=== PATIENT | male | born 1945 | race Caucasian/White ===

== ENCOUNTER 2017-03-29 09:41 | Day surgery (SDC) | payer MEDICARE, BC ==
[2017-03-29] MEDS ORDERED: Sodium Chloride 0.9% 10 ML Syringe FLUSH PRN (09:45)
[2017-03-29] MEDS ORDERED: Lactated Ringers 1,000 ML IV SCH (09:45)
[2017-03-29] MEDS ORDERED: Propofol 200 MG/20 ML SDV ONE ×2 (11:06→11:11)
[2017-03-29] MEDS ORDERED: Midazolam 1 MG/ML 2 ML SDV ONE ×2 (11:06→11:11)
[2017-03-29] MEDS ORDERED: fentaNYL 100 MCG/2 ML SDV ONE ×2 (11:06→11:11)
--- NOTE | 2017-03-29 11:15 | PCM.PN ---
- General Info Date of Service: 03/29/17 - Review of Systems Systems Review Comment:: This 72-year-old male is seen today for colonoscopy. He states his last colon endoscopy was about 10 years ago. He has a history of colon polyps. He is medically stable to proceed today with no significant change in his health status since his last exam. I discussed the proposed colonoscopy with the patient. Risks such as but not limited to bleeding and GI injury or reviewed. He appears to understand and agrees to proceed. - Patient Data Vitals - Most Recent: Last Vital Signs Temp 98.7 F 03/29/17 10:36 Pulse 95 03/29/17 10:36 Resp 18 03/29/17 10:36 BP 137/88 03/29/17 10:36 Pulse Ox 98 03/29/17 10:36 Weight - Most Recent: 88.088 kg Lab Results Last 24 Hours: Laboratory Results - last 24 hr 03/29/17 Range/Units 10:08 POC Glucose 148 H (65-110) mg/dl Med Orders - Current: Current Medications Lactated Ringer's (Ringers, Lactated) 1,000 mls @ 125 mls/hr IV ASDIRECTED LISA Last Admin: 03/29/17 10:29 Dose: 125 mls/hr Sodium Chloride (Saline Flush) 10 ml FLUSH ASDIRECTED PRN PRN Reason: Keep Vein Open Discontinued Medications Fentanyl (Sublimaze) Confirm Administered Dose 100 mcg .ROUTE .STK-MED ONE Stop: 03/29/17 11:07 Midazolam HCl (Versed 1 Mg/Ml) Confirm Administered Dose 2 mg .ROUTE .STK-MED ONE Stop: 03/29/17 11:07 Propofol (Diprivan 20 Ml) Confirm Administered Dose 200 mg .ROUTE .STK-MED ONE Stop: 03/29/17 11:07 - Problem List Review Problem List Initiated/Reviewed/Updated: Yes - My Orders Last 24 Hours: My Active Orders 03/29/17 09:45 Patient Status [ADT] Routine Blood Glucose Check, Bedside [RC] ONETIME Peripheral IV Care [RC] . DIRECTED Verify Patient Consent Obtain [RC] ASDIRECTED Lactated Ringers [Ringers, Lactated] 1,000 ml IV ASDIRECTED Sodium Chloride 0.9% [Saline Flush] 10 ml FLUSH ASDIRECTED PRN Peripheral IV Insertion Adult [OM.PC] Routine 03/29/17 11:06 Propofol [Diprivan 20 ML] 200 mg .ROUTE .STK-MED ONE fentaNYL [Sublimaze] 100 mcg .ROUTE .STK-MED ONE - Assessment Assessment:: History of colon polyps - Plan Plan:: Colonoscopy
--- NOTE | 2017-03-29 11:56 | PCM.OPNOTE ---
- General Post-Op/Procedure Note Date of Surgery/Procedure: 03/29/17 Operative Procedure(s): Colonoscopy with Polypectomy Findings: Extensive Sigmoid Diverticulosis Sigmoid colon polyp External hemorrhoids Pre Op Diagnosis: history of colon polyps Post-Op Diagnosis: Diverticulosis. Colon Polyp. Hemorrhoids Anesthesia Technique: MAC Primary Surgeon: Bart Holland Pathology: Sigmoid Colon Polyp Output, Urine Amount: 0 EBL in mLs: 0 Complications: None Condition: Good Free Text/Narrative:: Intake & Output 03/28/17 03/29/17 03/29/17 22:59 06:59 14:59 Intake Total 900 Balance 900
--- NOTE | 2017-03-29 14:25 | OR ---
Date of Procedure: 03/29/2017 PREOPERATIVE DIAGNOSIS: History of colon polyps. POSTOPERATIVE DIAGNOSES: 1. Sigmoid diverticulosis. 2. Colon polyps. 3. External hemorrhoids. OPERATION PERFORMED: Colonoscopy with polypectomy. INDICATIONS FOR SURGERY: This 72-year-old male has a history of colon polyps. It has been several years since his last colonoscopy, and he comes for this exam. FINDINGS: The patient has extensive sigmoid diverticulosis. Multiple pockets with some angulation are noted, but the area does not appear to be acutely inflamed. There is a single polyp noted which is 6 mm in size and semipedunculated. The remainder of the colon appears normal. The patient does have [id number] sized external hemorrhoids. PROCEDURE IN DETAIL: The patient was taken to the operating room. He was given intravenous sedation, and with him in the left lateral decubitus position, digital rectal exam was performed showing no rectal masses. The Olympus colonoscope was inserted into the rectum. A retroflexed examination of the rectal canal was performed. The scope was then carefully advanced under direct visualization through the entire length of the colon until the cecum was reached. Cecal acquisition is confirmed by noting the normal internal cecal anatomy, including the appendiceal orifice and ileocecal valve. With some hand pressure, the cecum was able to be completely viewed. After examining the cecum, the scope was slowly withdrawn, sequentially re-examining the colonic segments until the entire colon and rectum have been fully examined. Upon withdrawal of the scope, the above-described polyp was identified. It is removed with a cautery snare and retrieved into a polyp trap. At the closure of the procedure, there was no sign of any bleeding or other complication. The scope was removed, and the patient was taken from the operating room in satisfactory condition. ESTIMATED BLOOD LOSS: Zero. COMPLICATIONS: None. PROGNOSIS: Good. TAYLOR Holland MD /[id number]
== END 2017-03-29 13:09 | disposition home or self-care (01) ==
LOC: LL.SDS 09:41
PROVIDERS: ATTEND Surgery
DX: Z12.11 Encounter for screening for malignant neoplasm of colon (principal); Z86.010 Personal history of colon polyps; K57.30 Diverticulosis of large intestine without perforation or abscess without bleeding; K64.4 Residual hemorrhoidal skin tags; I10 Essential (primary) hypertension; E78.5 Hyperlipidemia, unspecified; E11.42 Type 2 diabetes mellitus with diabetic polyneuropathy; K21.9 Gastro-esophageal reflux disease without esophagitis; Z88.0 Allergy status to penicillin; Z88.8 Allergy status to other drugs, medicaments and biological substances; Z91.09 Other allergy status, other than to drugs and biological substances; Z79.899 Other long term (current) drug therapy; Z79.84 Long term (current) use of oral hypoglycemic drugs; Z79.82 Long term (current) use of aspirin
CPT/HCPCS: 45385; 82962; J2250; J2704; J3010; J7120; 00810-QZ; 88305

== ENCOUNTER 2018-09-11 17:56 | Emergency (ER) | payer MEDICARE, BC ==
[2018-09-11] MEDS ORDERED: Pantoprazole 40 MG Vial IVPUSH ONE (18:07)
[2018-09-11] MEDS ORDERED: Lactated Ringers 1,000 ML IV ONE (18:07)
[2018-09-11] MEDS ORDERED: Sodium Chloride 0.9% 10 ML Syringe FLUSH PRN (18:07)
[2018-09-11] MEDS ORDERED: Famotidine 20 MG/2 ML SDV IVPUSH ONE (18:07)
[2018-09-11] MEDS ORDERED: cefTRIAXone 1 GM in Sodium Chloride 0.9% 100 ML IV ONE (18:07)
[2018-09-11] MEDS ORDERED: metroNIDAZOLE/Normal Saline 500 MG in Premix Bag 1 BAG IV ONE (18:07)
--- NOTE | 2018-09-11 18:07 | EDM.PDOC ---
ED HPI GENERAL MEDICAL PROBLEM - General Chief Complaint: Abdominal Pain Stated Complaint: abd pain Time Seen by Provider: 09/11/18 18:00 Source of Information: Reports: Patient, Family (), Old Records ([facility] chart/EMR) History Limitations: Reports: No Limitations - History of Present Illness INITIAL COMMENTS - FREE TEXT/NARRATIVE: Patient was brought to the emergency room via private automobile by his for evaluation of 6-7/10 right lower quadrant abdominal pain, which started about 10 PM yesterday evening. His last oral solid intake was at 15:00 hours this afternoon with only some crackers and cheese eaten at that time. He does have a known history of diverticulosis. Patient has not taken any medications for his symptoms to this point. No recent history of other abdominal pain, heartburn, nausea, diarrhea, melena, gross hematochezia, or any food intolerance , including fatty foods, etc. with normal bowel movement earlier this morning. He denies any gross hematuria, colic, or other UTI symptoms. The patient denies any chest pain/pressure, heart flutter, dizziness, orthostasis, orthopnea, diaphoresis, paresthesias, recent decreased exercise tolerance, or any other anginal-type symptoms. The patient also denies any recent fever, cough, wheezing , dyspnea, etc.. Onset: Gradual Onset Date: 09/10/18 Onset Time: 22:00 Duration: Constant, Getting Worse Location: Reports: Abdomen. Denies: Head, Face, Neck, Chest, Back, Pelvis, Radiates to Quality: Reports: Sharp Severity: Moderate Improves with: Reports: Rest Worsens with: Reports: Movement Context: Reports: Other (As above). Denies: Sick Contact, Trauma Associated Symptoms: Reports: Loss of Appetite (Mild). Denies: Confusion, Chest Pain, Cough, Diaphoresis, Fever/Chills, Headaches, Malaise, Nausea/ Vomiting, Rash, Seizure, Shortness of Breath, Syncope, Weakness Treatments SECURITIES TELLER: Reports: Other (see below) (None) Right Lower Abdomen Pain Score (Numeric/FACES): 6 - Related Data Allergies Allergy/AdvReac Type Severity Reaction Status Date / Time adhesive tape Allergy UNKNOWN Verified 09/11/18 18:01 fenofibrate [From Tricor] Allergy UNKNOWN Verified 09/11/18 18:01 metoprolol Allergy UNKNOWN Verified 09/11/18 18:01 Penicillins Allergy UNKNOWN Verified 09/11/18 18:01 Home Meds: Home Meds Albuterol [Ventolin HFA] 1 puff INH Q6H PRN 03/28/17 [History] Allopurinol [Zyloprim] 100 mg PO BEDTIME 03/28/17 [History] Ascorbic Acid 500 mg PO BID 03/28/17 [History] Aspirin 81 mg PO BEDTIME 03/28/17 [History] Calcium Carbonate/Vitamin D3 [Oyster Shell 500-Vit D3 200 Tb] 1 each PO BID 10/07 [History] Cholecalciferol (Vitamin D3) [Vitamin D3] 1,000 units PO DAILY 03/28/17 [History ] Gabapentin [Neurontin] 100 mg PO BID 03/28/17 [History] Glimepiride [Amaryl] 4 mg PO WITHBREAKFAST 03/28/17 [History] Latanoprost 1 drop EYERT DAILY 03/28/17 [History] Loratadine 10 mg PO DAILY 03/28/17 [History] Omeprazole 20 mg PO DAILY 03/28/17 [History] Simvastatin [Zocor] 20 mg PO BEDTIME 03/28/17 [History] SitaGLIPtin [Januvia] 100 mg PO DAILY 03/28/17 [History] Tamsulosin HCl 0.8 mg PO DAILY 03/28/17 [History] amLODIPine/Benazepril [Lotrel 5-20 MG] 1 cap PO DAILY 03/28/17 [History] metFORMIN HCl [Metformin HCl] 1,000 mg PO BID 03/28/17 [History] Past Medical History HEENT History: Reports: Allergic Rhinitis, Cataract, Hard of Hearing, Impaired Vision, Retinal Detachment, Other (See Below). Denies: Glaucoma, Macular Degeneration Other HEENT History: Patient wears glasses. Moderate left-sided strabismus divergence without diplopia. Diabetic retinopathy with right-sided retinal hemorrhage requiring laser treatment as below. Left eye vision loss secondary to childhood strabismus divergence. 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 Mild bilateral cataracts with no surgery to this point. Cardiovascular History: Reports: Arrhythmia, High Cholesterol, Hypertension, Other (See Below). Denies: Afib, Aneurysm, Blood Clots/VTE/DVT, Bypass, CAD, Heart Failure, Heart Murmur, DE, PVD, Syncope Other Cardiovascular History: Dyslipidemia. PACs, PVCs, couplets, trigeminy, and incomplete right bundle branch block. Respiratory History: Reports: Asthma, Bronchitis, Recurrent, COPD, Other (See Below). Denies: Intubation, Difficult, Intubation, Previous, PE, Pneumonia, Recurrent, Sleep Apnea, TB Other Respiratory History: Childhood asthma. Gastrointestinal History: Reports: Chronic Diarrhea, Colon Polyp, Diverticulosis , Gastritis, GERD, Hemorrhoids, Other (See Below). Denies: Celiac Disease, Cholelithiasis, Chronic Constipation, Fecal Incontinence, GI Bleed, Hepatitis, Irritable Bowel Syndrome, Jaundice, Pancreatitis, PUD Other Gastrointestinal History: GERD with H. pylori treatment in June 2003. Fatty liver. Sigmoid diverticulosis. Left inguinal hernia. Genitourinary History: Reports: BPH, Chronic Renal Insuffiency, Diabetic Nephropathy, Renal Calculus, Other (See Below). Denies: STD, Urinary Incontinence, UTI, Recurrent Other Genitourinary History: Diabetic nephropathy with known proteinuria. Moderate bilateral nephrolithiasis with spontaneous passage of urinary stones. Musculoskeletal History: Reports: Arthritis, Back Pain, Chronic, Gout, Neck Pain , Chronic, Osteoarthritis, Other (See Below). Denies: Amputation, Fracture, Osteoporosis, RA, SLE Other Musculoskeletal History: Kyphosis and scoliosis. Osteoarthritis with known hyperuricemia and CPK elevation. Closed fracture of lateral left condyle of distal femur with old peripheral tear of lateral meniscus of left knee in about 2014. Neurological History: Reports: Neuropathy, Diabetic, Neuropathy, Peripheral. Denies: Cerebral Aneurysms, Concussion, CVA, Headaches, Chronic, Head Trauma, Migraines, MS, Parkinson's, Seizure, TIA, Vertigo Psychiatric History: Reports: None. Denies: Abuse, Victim of, ADD, ADHD, Addiction, Anxiety, Depression, Psych Hospitalization(s), Psychosis, PTSD, Suicide Attempt, Suicidal Ideation Endocrine/Metabolic History: Reports: Diabetes, Type II. Denies: Diabetes, Type I, Diabetes Mellitus, Type 3c, Hypothyroidism, Osteopenia, Osteoporosis Hematologic History: Reports: Other (See Below). Denies: Anemia, Blood Transfusion(s), Iron Deficiency Other Hematologic History: Macrocytosis. Immunologic History: Reports: None. Denies: AIDS, HIV, SLE Oncologic (Cancer) History: Reports: Basal Cell Carcinoma, Other (See Below). Denies: Bladder, Colon, Hodgkin's Lymphoma, Leukemia, Lymphoma, Malignant Melanoma, Non-Hodgkin's Lymphoma, Prostate, Renal, Squamous Cell Carcinoma Other Oncologic History: Basal cell carcinoma excised from the forehead on 03/20 and the right cheek in the early 1999s. Dermatologic History: Reports: Eczema, Seborrheic Dermatitis - Infectious Disease History Infectious Disease History: Reports: Measles, Mumps. Denies: C-Difficile, Chicken Pox, Meningitis, Mononucleosis, MRSA, Pertussis (Whooping Cough), Rheumatic Fever, Rubella, Scarlet Fever, Shingles, TB, VRE - Past Surgical History Head Surgeries/Procedures: Reports: None HEENT Surgical History: Reports: Laser Surgery, Oral Surgery, Other (See Below) . Denies: Adenoidectomy, Cataract Surgery, Eye Surgery, LASIK, Myringotomy w Tube(s), Naso-Sinus Surgery, Tonsillectomy Other HEENT Surgeries/Procedures: Right retinal laser treatment for retinal hemorrhage in about 1993. [place] teeth extraction times in 1995 with additional teeth extractions. Cardiovascular Surgical History: Reports: None. Denies: Varicose Respiratory Surgical History: Reports: None. Denies: Thoracentesis GI Surgical History: Reports: Colonoscopy, EGD, Polypectomy, Other (See Below). Denies: Appendectomy, Cholecystectomy, Hernia, Abdominal, Hernia, Inguinal, Hernia Repair/Other Other GI Surgeries/Procedures: Colonoscopy with polypectomy of hyperplastic colonic polyp at 15 cm on 03/29/17. EGD and colonoscopy on 03/28/04. Male Surgical History: Reports: Circumcision, Vasectomy, Other (See Below) Other Male Surgeries/Procedures: Vasectomy in 1982. Circumcision as an . Endocrine Surgical History: Reports: None. Denies: Thyroid Biopsy Neurological Surgical History: Denies: C-Spine, Discectomy, Laminectomy, Lumbar Spine, Sacral Spine, Spinal Fusion, Thoracic Spine, Vertebroplasty Musculoskeletal Surgical History: Reports: None. Denies: Arthroscopic Procedure , Carpal Tunnel, Ganglion Cyst, Joint Replacement, ORIF, Shoulder Surgery Oncologic Surgical History: Reports: Other (See Below) Other Oncologic Surgeries/Procedures: Excision of basal cell carcinoma 2 as above. Dermatological Surgical History: Reports: Skin Biopsy, Other (See Below) Other Dermatological Surgeries/Procedures: Multiple benign skin lesion destructions. - Past Imaging History Past Imaging History: Reports: Barium Enema (02/05/01), CAT Scan (CT of the chest on 07/13/03 and 06/30/02. CT of the abdomen and pelvis on 07/23/17 and .), PFT (01/12/03), Stress Testing (Cardiolite stress test on 04/25/07 with ejection fraction of 58%.), Other (See Below) (Flexible sigmoidoscopy on ) Social & Family History - Family History HEENT: Reports: None. Denies: Glaucoma, Macular Degeneration, Retinal Detachment Cardiac: Reports: CAD, Hypertension, DE, Other (See Below). Denies: Afib, Aneurysm, Arrhythmia, Blood Clots/VTE/DVT, Heart Failure, Heart Murmur, High Cholesterol, PVD/COD, Syncope Other Cardiac Family History: Mother with fatal DE at age 70. Mother and brother with hypertension. Respiratory: Reports: None. Denies: Asthma, COPD, PE, Pneumothorax, Sleep Apnea GI: Denies: Celiac Disease, Cholelithiasis, Colon Polyps, GERD, GI bleed, Inflammatory Bowel Disease, Irritable Bowel Syndrome, PUD : Reports: None. Denies: Renal Calculus, Renal Disease/Insufficiency OBGYN: Reports: None. Denies: Endometriosis, Recurrent Spontaneous Musculoskeletal: Reports: None. Denies: Gout, RA, SLE Neurological: Reports: Alzheimers Disease, Dementia, Other (See Below). Denies : CVA, Migraines, MS, Parkinson's, Seizure, TIA Other Neurological Family History: Paternal uncle with Alzheimer's disease. Psychiatric: Reports: None. Denies: Abuse, Victim of, ADD, ADHD, Anxiety, Depression, Psych Hospitalization(s), PTSD, Suicide Attempt Endocrine/Metabolic: Reports: Diabetes, type II, IDDM, Other (See Below). Denies: Diabetes, Type I, Diabetes Mellitus, Type 3c, Hypothyroidism Other Endocrine/Metabolic Family History: Mother and paternal grandfather with IDDM. Hematologic: Reports: None. Denies: Anemia Immunologic: Reports: None. Denies: AIDS, HIV, SLE Dermatologic: Reports: None. Denies: Eczema, Psoriasis Oncologic: Reports: Renal, Other (See Below). Denies: Colon, Hodgkin's Lymphoma , Leukemia, Lymphoma, Prostate, Skin Other Oncologic Family History: Father from renal cancer at age 64. Brother from renal cancer at age 61 with secondary pulmonary metastases. Sister with unknown type of metastatic cancer at age 69 with hepatic and renal metastases. - Tobacco Use Smoking Status *Q: Never Smoker Tobacco Use Within Last Twelve Months: No Used Tobacco, but Quit: No Smoking Cessation Information Provided To Patient: No Second Hand Smoke Exposure: No Second Hand Smoke Education Provided: No - Caffeine Use Caffeine Use: Reports: Coffee (3 cups per day.), Soda (1 Soda per day). Denies : Energy Drinks, Tea - Alcohol Use Alcohol Use History: No Days Per Week of Alcohol Use: 0 Number of Drinks Per Day: 0 Number of Drinks Per Day Comment: No previous DWIs, problems with alcohol abuse , etc. 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 ED EXAM, GI/ABD - Physical Exam Exam: See Below Exam Limited By: No Limitations General Appearance: Alert, WD/WN, No Apparent Distress Eyes: Left: Abnormal EOM (Moderate left-sided strabismus divergence with patient wearing glasses. No nystagmus. PERRLA) Ears: Normal External Exam, Normal Canal, Hearing Grossly Normal, Normal TMs Nose: Normal Inspection, Normal Mucosa, No Blood Throat/Mouth: Normal Inspection, Normal Lips, Normal Teeth, Normal Gums, Normal Oropharynx, Normal Voice, No Airway Compromise. No: Dysphagia, Perioral Cyanosis Head: Atraumatic, Normocephalic. No: Facial Swelling, Facial Tenderness, Sinus Tenderness Neck: Normal Inspection, Supple, Non-Tender, Full Range of Motion. No: Carotid Bruit, Lymphadenopathy (L), Lymphadenopathy (R), Thyromegaly Respiratory/Chest: No Respiratory Distress, Lungs Clear, Normal Breath Sounds, No Accessory Muscle Use, Chest Non-Tender. No: Pleural Rub, Retractions Cardiovascular: Normal Peripheral Pulses, No Edema, No Gallop, No JVD, No Murmur , No Rub, Tachycardia (Regular rhythm). No: Gallop/S3, Gallop/S4, Friction Rub GI/Abdominal Exam: Normal Bowel Sounds, No Organomegaly, No Distention, No Abnormal Bruit, No Mass, Pelvis Stable, Tender (Moderate right lower quadrant palpation pain). No: Guarding, Rigid, Rebound (Male) Exam: Deferred Rectal (Males) Exam: Deferred Back Exam: Full Range of Motion, Other (Kyphoscoliosismild.). No: CVA Tenderness (L), CVA Tenderness (R), Muscle Spasm Extremities: Normal Inspection, Normal Range of Motion, Non-Tender, No Pedal Edema, Normal Capillary Refill. No: Kelli's Sign Neurological: Alert, Oriented, CN II-XII Intact, Normal Cognition, Normal Gait, Normal Reflexes (Negative Babinski's), No Motor/Sensory Deficits Psychiatric: Normal Affect, Normal Mood Skin Exam: Warm, Dry, Intact, Normal Color, No Rash. No: Diaphoretic, Wound/ Incision Lymphatic: No Adenopathy Course - Vital Signs Last Recorded V/S: Last Vital Signs Temp 37.7 C 09/11/18 18:00 Pulse 94 09/11/18 20:14 Resp 15 09/11/18 20:14 BP 133/97 H 09/11/18 20:14 Pulse Ox 99 09/11/18 20:14 Vital Signs - 24 hr 09/11/18 09/11/18 09/11/18 18:00 18:15 18:30 Temperature [ 37.7 C Oral] Pulse, 97 112 H 107 H Peripheral [ Pulse Oximetry] Respiratory 16 18 20 Rate Blood Pressure 153/82 H 138/83 147/81 H [Left Upper Arm ] O2 Sat by Pulse 97 96 95 Oximetry 09/11/18 09/11/18 09/11/18 18:45 19:15 19:40 Temperature [ Oral] Pulse, 105 H 95 94 Peripheral [ Pulse Oximetry] Respiratory 20 19 17 Rate Blood Pressure 140/80 133/75 133/97 H [Left Upper Arm ] O2 Sat by Pulse 96 99 99 Oximetry 09/11/18 20:14 Temperature [ Oral] Pulse, 94 Peripheral [ Pulse Oximetry] Respiratory 15 Rate Blood Pressure 133/97 H [Left Upper Arm ] O2 Sat by Pulse 99 Oximetry - Orders/Labs/Meds Orders: Active Orders 24 hr Category Date Time Status Cardiac Monitoring [RC] . DIRECTED Care 09/11/18 18:09 Active Communication Order [RC] ROUTINE Care 09/11/18 20:02 Active Peripheral IV Care [RC] . DIRECTED Care 09/11/18 18:07 Active Nothing Per Oral Diet [DIET] Diet 09/11/18 Breakfast Active Abdomen Pelvis w Cont [CT] Stat Exams 09/11/18 18:07 Taken CULTURE BLOOD [BC] Stat Lab 09/11/18 18:15 Received CULTURE BLOOD [BC] Stat Lab 09/11/18 18:25 Received CULTURE URINE [RM] Stat Lab 09/11/18 19:10 Received Sodium Chloride 0.9% [Normal Saline] 1,000 ml Med 09/11/18 20:01 Active IV .BOLUS Sodium Chloride 0.9% [Saline Flush] Med 09/11/18 18:07 Active 10 ml FLUSH ASDIRECTED PRN Blood Culture x2 Reflex Set [OM.PC] Urgent Oth 09/11/18 18:07 Ordered Obtain Past Medical Record [OM.PC] Urgent Oth 09/11/18 18:07 Active Peripheral IV Insertion Adult [OM.PC] Stat Oth 09/11/18 18:07 Ordered Resuscitation Status Stat Resus Stat 09/11/18 18:07 Ordered Medication Orders Sodium Chloride (Normal Saline) 1,000 mls @ 999 mls/hr IV .BOLUS ONE Stop: 09/11/18 21:01 Last Admin: 09/11/18 20:10 Dose: 999 mls/hr Sodium Chloride (Saline Flush) 10 ml FLUSH ASDIRECTED PRN PRN Reason: Keep Vein Open Last Admin: 09/11/18 18:36 Dose: 10 ml Labs: Laboratory Tests 09/11/18 09/11/18 09/11/18 Range/Units 18:15 18:15 18:15 WBC 12.8 H (4.0-10.2) K/uL RBC 3.78 L (4.33-5.41) M/uL Hgb 10.4 L (13.1-16.8) g/dL Hct 31.7 L (39.0-49.0) % MCV 83.9 L (84.0-98.0) fL MCH 27.5 L (28.2-33.3) pg MCHC 32.8 (31.7-36.0) g/dL RDW 14.5 H (11.2-14.1) % Plt Count 171 (150-350) K/uL Neut % (Auto) 78.0 (45.0-80.0) % Lymph % (Auto) 10.6 (10.0-50.0) % Chambers % (Auto) 10.7 (2.0-14.0) % Eos % (Auto) 0.5 (0.0-5.0) % Baso % (Auto) 0.2 (0.0-2.0) % Neut # (Auto) 9.95 H (1.40-7.00) K/uL Lymph # (Auto) 1.35 (0.50-3.50) K/uL Chambers # (Auto) 1.36 H (0.00-1.00) K/uL Eos # (Auto) 0.07 (0.00-0.50) K/uL Baso # (Auto) 0.03 (0.00-0.20) K/uL PT 10.7 (9.5-12.0) SEC INR 1.0 APTT 32.2 H (21.0-31.3) SEC Sodium (136-145) mmol/L Potassium (3.5-5.1) mmol/L Chloride (98-107) mmol/L Carbon Dioxide (21.0-32.0) mmol/L BUN (7-18) mg/dL Creatinine (0.51-1.17) mg/dL Est Cr Clr Drug Dosing mL/min Estimated GFR (MDRD) mL/min Glucose (74-106) mg/dL Lactic Acid (0.4-2.0) mmol/L Uric Acid (2.6-7.2) mg/dL Calcium (8.5-10.1) mg/dL Magnesium (1.8-2.4) mg/dL Total Bilirubin (0.2-1.0) mg/dL AST (15-37) U/L ALT (12-78) U/L Alkaline Phosphatase (46-116) IU/L Total Protein (6.4-8.2) g/dL Albumin (3.4-5.0) g/dL Amylase 49 (25-115) U/L Lipase (73-393) U/L Specimen Type Urine Color Urine Appearance Urine pH (5.0-9.0) Ur Specific [place] (1.005-1.030) Urine Protein (NEGATIVE) mg/dL Urine Glucose (UA) (NEGATIVE) mg/dL Urine Ketones (NEGATIVE) mg/dL Urine Occult Blood (NEGATIVE) Urine Nitrite (NEGATIVE) Urine Bilirubin (NEGATIVE) Urine Urobilinogen (0.2-1.0) E.U./dL Ur Leukocyte Esterase (NEGATIVE) Urine RBC /HPF Urine WBC /HPF Ur Epithelial Cells /LPF Urine Bacteria (NONE TO FEW) /HPF 09/11/18 09/11/18 09/11/18 Range/Units 18:15 18:15 19:10 WBC (4.0-10.2) K/uL RBC (4.33-5.41) M/uL Hgb (13.1-16.8) g/dL Hct (39.0-49.0) % MCV (84.0-98.0) fL MCH (28.2-33.3) pg MCHC (31.7-36.0) g/dL RDW (11.2-14.1) % Plt Count (150-350) K/uL Neut % (Auto) (45.0-80.0) % Lymph % (Auto) (10.0-50.0) % Chambers % (Auto) (2.0-14.0) % Eos % (Auto) (0.0-5.0) % Baso % (Auto) (0.0-2.0) % Neut # (Auto) (1.40-7.00) K/uL Lymph # (Auto) (0.50-3.50) K/uL Chambers # (Auto) (0.00-1.00) K/uL Eos # (Auto) (0.00-0.50) K/uL Baso # (Auto) (0.00-0.20) K/uL PT (9.5-12.0) SEC INR APTT (21.0-31.3) SEC Sodium 139 (136-145) mmol/L Potassium 5.2 H (3.5-5.1) mmol/L Chloride 106 (98-107) mmol/L Carbon Dioxide 19.9 L (21.0-32.0) mmol/L BUN 23 H (7-18) mg/dL Creatinine 1.60 H (0.51-1.17) mg/dL Est Cr Clr Drug Dosing 40.51 mL/min Estimated GFR (MDRD) 42 mL/min Glucose 148 H (74-106) mg/dL Lactic Acid 1.0 (0.4-2.0) mmol/L Uric Acid 6.6 (2.6-7.2) mg/dL Calcium 8.7 (8.5-10.1) mg/dL Magnesium 1.2 L (1.8-2.4) mg/dL Total Bilirubin 0.5 (0.2-1.0) mg/dL AST 23 (15-37) U/L ALT 28 (12-78) U/L Alkaline Phosphatase 77 (46-116) IU/L Total Protein 7.3 (6.4-8.2) g/dL Albumin 3.7 (3.4-5.0) g/dL Amylase (25-115) U/L Lipase 108 (73-393) U/L Specimen Type Urinvoid Urine Color Yellow Urine Appearance Clear Urine pH 5.5 (5.0-9.0) Ur Specific [place] 1.015 (1.005-1.030) Urine Protein Trace H (NEGATIVE) mg/dL Urine Glucose (UA) Negative (NEGATIVE) mg/dL Urine Ketones Trace H (NEGATIVE) mg/dL Urine Occult Blood Negative (NEGATIVE) Urine Nitrite Negative (NEGATIVE) Urine Bilirubin Negative (NEGATIVE) Urine Urobilinogen 0.2 (0.2-1.0) E.U./dL Ur Leukocyte Esterase Negative (NEGATIVE) Urine RBC 0-5 /HPF Urine WBC 0-5 /HPF Ur Epithelial Cells Rare /LPF Urine Bacteria Rare (NONE TO FEW) /HPF Blood Cultures 2 were collected. Urine specimen set up for culture and sensitivity. Meds: Medications Generic Name Dose Route Start Last Admin Trade Name Freq PRN Reason Stop Dose Admin Sodium Chloride 1,000 mls @ 999 mls/hr 09/11/18 20:01 09/11/18 20:10 Normal Saline IV 09/11/18 21:01 999 mls/hr .BOLUS ONE Administration Sodium Chloride 10 ml 05/22/19 18:07 09/11/18 18:36 Saline Flush FLUSH 10 ml ASDIRECTED PRN Administration Keep Vein Open Discontinued Medications Generic Name Dose Route Start Last Admin Trade Name Narciso PRN Reason Stop Dose Admin Famotidine 40 mg 09/11/18 18:07 09/11/18 18:36 Pepcid IVPUSH 09/11/18 18:08 40 mg ONETIME ONE Administration Ceftriaxone Sodium 1 gm/ 100 mls @ 200 mls/hr 09/11/18 18:07 09/11/18 18:36 Sodium Chloride IV 09/11/18 18:36 200 mls/hr ONETIME ONE Administration Lactated Ringer's 1,000 mls @ 999 mls/hr 09/11/18 18:07 Ringers, Lactated IV 09/11/18 19:07 .BOLUS ONE Metronidazole 500 mg/ Premix 100 mls @ 100 mls/hr 09/11/18 18:07 09/11/18 19: 34 IV 09/11/18 19:06 100 mls/hr ONETIME ONE Administration Iopamidol 100 ml 09/11/18 18:55 09/11/18 19:20 Isovue-300 (61%) IVPUSH 09/11/18 18:56 100 ml ONETIME ONE Administration Pantoprazole Sodium 40 mg 09/11/18 18:07 09/11/18 18:35 Protonix Iv IVPUSH 09/11/18 18:08 40 mg ONETIME ONE Administration - Radiology Interpretation Free Text/Narrative:: Solvent Plant Operator shows mild sinus tachycardia with heart rate in the 110s with occasional PVCs but no other significant ectopy or arrhythmia. Heart rate in the 90s prior to transfer. Preliminary verbal report by telephone consultation with the radiology department at [facility]. CT scan of the abdomen and pelvis with IV contrast positive for appendicitis with no abscess, perforation, etc. Note incidental findings of fatty liver and bilateral nephrolithiasis with no hydronephrosis, etc. CT Results Date: 09/11/18 CT Results Time: 19:50 Departure - Departure Time of Disposition: 20:25 Disposition: DC/Tfer to Acute Hospital 02 Condition: Good Clinical Impression: Renal insufficiency, Dyslipidemia, Hyperkalemia, Hypomagnesemia, Hypertension Abdominal pain Qualifiers: Abdominal location: right lower quadrant Qualified Code(s): R10.31 - Right lower quadrant pain Osteoarthritis Qualifiers: Osteoarthritis location: multiple joints Osteoarthritis type: primary Qualified Code(s): M15.0 - Primary generalized (osteo)arthritis Anemia Qualifiers: Anemia type: unspecified type Qualified Code(s): D64.9 - Anemia, unspecified Appendicitis Qualifiers: Appendicitis type: acute appendicitis Acute appendicitis type: other Qualified Code(s): K35.890 - Other acute appendicitis without perforation or gangrene Diabetes mellitus Qualifiers: Diabetes mellitus type: type 2 Diabetes mellitus custodial insulin use: without long term care pharmacist use Diabetes mellitus complication status: with kidney complications Diabetes mellitus complication detail: with microalbuminuria Qualified Code(s): E11.29 - Type 2 diabetes mellitus with other diabetic kidney complication - Discharge Information *PRESCRIPTION DRUG MONITORING PROGRAM REVIEWED*: Not Applicable *COPY OF PRESCRIPTION DRUG MONITORING REPORT IN PATIENT DARREN: Not Applicable Instructions: Appendicitis, Adult Referrals: Chip Mckoy PA [Primary Care Provider] - Forms: ED Department Discharge, Interfacility Transfer EMTALA Additional Instructions: 1. Your is to drive you to [facility] for direct admission 2. STRICT nothing to eat or drink until otherwise directed - Problem List & Annotations (1) Appendicitis SNOMED Code(s): 97475965 Code(s): K37 - UNSPECIFIED APPENDICITIS Status: Acute Priority: High Current Visit: Yes Onset Date: 09/10/18 Annotation/Comment:: Positive CT scan for appendicitis without perforation as above. Note no direct peritoneal signs at this time. Secondary to suspicions of appendicitis IV Rocephin and IV Flagyl therapy was initiated immediately upon patient's arrival to this facility. A bolus of IV normal saline was also initiated in the emergency room secondary to IV contrast of patient's history of diabetic nephropathy. Telephone consultation at 19:[address] Capellan, general surgeon at [facility], who does accept the patient for direct admission, with no further treatment recommendations given. Patient discharged with saline lock in place. Private Automobile transfer with his . He did not wish to have any IV pain medicines prior to discharge. Qualifiers: Appendicitis type: acute appendicitis Acute appendicitis type: other Qualified Code(s): K35.890 - Other acute appendicitis without perforation or gangrene; K35.89 - Other acute appendicitis (2) Abdominal pain SNOMED Code(s): 11972402 Code(s): R10.9 - UNSPECIFIED ABDOMINAL PAIN Status: Acute Priority: High Current Visit: Yes Onset Date: 09/11/18 Annotation/Comment:: Positive for appendicitis as above with differential diagnosis of diverticulitis with CT scan results as above. Qualifiers: Abdominal location: right lower quadrant Qualified Code(s): R10.31 - Right lower quadrant pain (3) Anemia SNOMED Code(s): 044662108 Code(s): D64.9 - ANEMIA, UNSPECIFIED Status: Acute Priority: Medium Current Visit: Yes Onset Date: 09/11/18 Annotation/Comment:: No evidence of GI bleed. High-dose IV Pepcid and IV Protonix given as GI prophylaxis. Qualifiers: Anemia type: unspecified type Qualified Code(s): D64.9 - Anemia, unspecified (4) Dyslipidemia SNOMED Code(s): 818100505 Code(s): E78.5 - HYPERLIPIDEMIA, UNSPECIFIED Status: Chronic Priority: Medium Current Visit: Yes Annotation/Comment:: Currently under therapy. Fatty liver by CT scan. (5) Hyperkalemia SNOMED Code(s): 73329216 Code(s): E87.5 - HYPERKALEMIA Status: Acute Priority: Medium Current Visit: Yes Onset Date: 09/11/18 Annotation/Comment:: Note normal saline IV bolus initiated in the ER as above. Continue aggressive IV hydration secondary to his renal insufficiency, etc. (6) Hypomagnesemia SNOMED Code(s): 597766459 Code(s): E83.42 - HYPOMAGNESEMIA Status: Acute Priority: Medium Current Visit: Yes Onset Date: 09/11/18 Annotation/Comment:: Consider magnesium supplementation by accepting providers. (7) Osteoarthritis SNOMED Code(s): 809715161 Code(s): M19.90 - UNSPECIFIED OSTEOARTHRITIS, UNSPECIFIED SITE Status: Chronic Priority: Medium Current Visit: Yes Annotation/Comment:: Stable by history Qualifiers: Osteoarthritis location: multiple joints Osteoarthritis type: primary Qualified Code(s): M15.0 - Primary generalized (osteo)arthritis (8) Renal insufficiency SNOMED Code(s): 678698307, 200375034 Code(s): N28.9 - DISORDER OF KIDNEY AND URETER, UNSPECIFIED Status: Chronic Priority: Medium Current Visit: Yes Annotation/Comment:: Known diabetic nephropathy. Continue to observe renal function closely secondary to recent IV contrast this evening. (9) Diabetes mellitus SNOMED Code(s): 27116960 Code(s): E11.9 - TYPE 2 DIABETES MELLITUS WITHOUT COMPLICATIONS Status: Chronic Priority: Medium Current Visit: Yes Annotation/Comment:: Home Accu -Cheks have been averaging in the 120s to 130s at at bedtime. Stable by history. Qualifiers: Diabetes mellitus type: type 2 Diabetes mellitus long term care pharmacist insulin use: without custodial use Diabetes mellitus complication status: with kidney complications Diabetes mellitus complication detail: with microalbuminuria Qualified Code(s): E11.29 - Type 2 diabetes mellitus with other diabetic kidney complication; R80.9 - Proteinuria, unspecified (10) Hypertension SNOMED Code(s): 16117248 Code(s): I10 - ESSENTIAL (PRIMARY) HYPERTENSION Status: Chronic Priority : Medium Current Visit: Yes Annotation/Comment:: The blood pressures were somewhat elevated in the emergency room, however stable, including prior to transfer. Qualifiers: Hypertension type: essential hypertension Qualified Code(s): I10 - Essential (primary) hypertension - Problem List Review Problem List Initiated/Reviewed/Updated: Yes - My Orders Last 24 Hours: My Active Orders 09/11/18 18:07 Peripheral IV Care [RC] . DIRECTED Abdomen Pelvis w Cont [CT] Stat Sodium Chloride 0.9% [Saline Flush] 10 ml FLUSH ASDIRECTED PRN Blood Culture x2 Reflex Set [OM.PC] Urgent Obtain Past Medical Record [OM.PC] Urgent Peripheral IV Insertion Adult [OM.PC] Stat Resuscitation Status Stat 09/11/18 18:09 Cardiac Monitoring [RC] . DIRECTED 09/11/18 18:15 CULTURE BLOOD [BC] Stat 09/11/18 18:25 CULTURE BLOOD [BC] Stat 09/11/18 19:10 CULTURE URINE [RM] Stat 09/11/18 20:01 Sodium Chloride 0.9% [Normal Saline] 1,000 ml IV .BOLUS 09/11/18 20:02 Communication Order [RC] ROUTINE 09/11/18 Breakfast Nothing Per Oral Diet [DIET] - Assessment/Plan Last 24 Hours: My Active Orders 09/11/18 18:07 Peripheral IV Care [RC] . DIRECTED Abdomen Pelvis w Cont [CT] Stat Sodium Chloride 0.9% [Saline Flush] 10 ml FLUSH ASDIRECTED PRN Blood Culture x2 Reflex Set [OM.PC] Urgent Obtain Past Medical Record [OM.PC] Urgent Peripheral IV Insertion Adult [OM.PC] Stat Resuscitation Status Stat 09/11/18 18:09 Cardiac Monitoring [RC] . DIRECTED 09/11/18 18:15 CULTURE BLOOD [BC] Stat 09/11/18 18:25 CULTURE BLOOD [BC] Stat 09/11/18 19:10 CULTURE URINE [RM] Stat 09/11/18 20:01 Sodium Chloride 0.9% [Normal Saline] 1,000 ml IV .BOLUS 09/11/18 20:02 Communication Order [RC] ROUTINE 09/11/18 Breakfast Nothing Per Oral Diet [DIET] Assessment:: As above Plan: As above. Extensive precautions were given to the patient and his , who are in agreement with the treatment plan. See Patient Instructions for further treatment and plan. Private automobile transfer with his driving.
[2018-09-11] MEDS ORDERED: Iopamidol 612 MG/ML 100 ML Bottle IVPUSH ONE (18:55)
[2018-09-11] MEDS ORDERED: Sodium Chloride 0.9% 1,000 ML IV ONE (20:01)
== END 2018-09-11 20:25 ==
LOC: LL.ED 17:56
DX: K35.890 Other acute appendicitis without perforation or gangrene (principal); D64.9 Anemia, unspecified; M15.0 Primary generalized (osteo)arthritis; N28.9 Disorder of kidney and ureter, unspecified; E87.5 Hyperkalemia; E83.42 Hypomagnesemia; I10 Essential (primary) hypertension; E78.00 Pure hypercholesterolemia, unspecified; J45.909 Unspecified asthma, uncomplicated; E11.42 Type 2 diabetes mellitus with diabetic polyneuropathy; Z79.82 Long term (current) use of aspirin; Z79.84 Long term (current) use of oral hypoglycemic drugs; Z88.0 Allergy status to penicillin; Z88.8 Allergy status to other drugs, medicaments and biological substances; Z91.09 Other allergy status, other than to drugs and biological substances
CPT/HCPCS: 36415; 74177; 80053; 81001; 82150; 83605; 83690; 83735; 84550; 85025; 85610; 85730; 87040; 87086; 96365; 96367; 96375; 99285; A4217; C9113; J0696; J3490; J7030; J7050; Q9967

== ENCOUNTER 2018-11-25 16:38 | Emergency (ER) | payer MEDICARE, BC ==
[2018-11-25] MEDS ORDERED: 50% Dextrose in Water 50 ML Syringe ONE ×2 (17:08→18:01)
[2018-11-25] MEDS ORDERED: Insulin Regular, Human 100 Units/ML 3 ML Vial ONE ×2 (17:08→18:03)
[2018-11-25] MEDS ORDERED: Sodium Polystyrene Sulfonate 15 GM/60 ML Susp 60 ML Bot ONE ×3 (17:08→18:06)
[2018-11-25] MEDS ORDERED: Sodium Chloride 0.9% 10 ML Syringe FLUSH PRN (17:16)
[2018-11-25 17:32] LABS: CHLORIDE,CL 113 mmol/L (98-107); SODIUM,NA 137 mmol/L (136-145)
[2018-11-25] MEDS ORDERED: Sodium Chloride 0.9% 1,000 ML IV SCH (17:45)
[2018-11-25] MEDS ORDERED: Sodium Chloride 0.9% 250 ML IV SCH (17:45)
[2018-11-25] MEDS ORDERED: Insulin Regular, Human 100 Units/ML 3 ML Vial SUBCUT ONE (18:08)
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
== END 2018-11-25 18:45 ==
LOC: LL.ED 16:38
DX: N17.9 Acute kidney failure, unspecified (principal); R41.82 Altered mental status, unspecified; E87.5 Hyperkalemia
CPT/HCPCS: 36415; 71045; 80053; 82272; 82962; 83605; 83735; 83880; 85025; 85379; 85610; 85730; 96360; 96374; 99285; A9270; J1815; J7030; 51702; 99284; J7060

== ENCOUNTER 2022-10-05 08:20 | Day surgery (SDC) | payer MEDICARE, BC ==
[~2022-10-05 08:20] MED LIST: Propofol 200 MG/20 ML SDV ONE
[2022-10-05] MEDS ORDERED: Sodium Chloride 0.9% 10 ML Syringe FLUSH PRN (08:30)
[2022-10-05] MEDS ORDERED: Lactated Ringers 1,000 ML IV SCH (08:30)
[2022-10-05] MEDS ORDERED: Propofol 200 MG/20 ML SDV ONE (10:56)
== END 2022-10-05 11:40 | disposition home or self-care (01) ==
LOC: LL.SDS 08:20
PROVIDERS: ATTEND Surgery
DX: Z12.11 Encounter for screening for malignant neoplasm of colon (principal); D12.3 Benign neoplasm of transverse colon; D12.2 Benign neoplasm of ascending colon; D12.0 Benign neoplasm of cecum; K57.30 Diverticulosis of large intestine without perforation or abscess without bleeding; I12.9 Hypertensive chronic kidney disease with stage 1 through stage 4 chronic kidney disease, or unspecified chronic kidney disease; E11.42 Type 2 diabetes mellitus with diabetic polyneuropathy; E11.22 Type 2 diabetes mellitus with diabetic chronic kidney disease; N18.4 Chronic kidney disease, stage 4 (severe); D63.1 Anemia in chronic kidney disease; N40.1 Benign prostatic hyperplasia with lower urinary tract symptoms; R35.0 Frequency of micturition; K21.9 Gastro-esophageal reflux disease without esophagitis; E53.8 Deficiency of other specified B group vitamins; E83.42 Hypomagnesemia; R06.00 Dyspnea, unspecified; Z79.4 Long term (current) use of insulin; Z79.899 Other long term (current) drug therapy; Z79.84 Long term (current) use of oral hypoglycemic drugs; E11.9 Type 2 diabetes mellitus without complications; Z88.0 Allergy status to penicillin; Z88.8 Allergy status to other drugs, medicaments and biological substances; Z91.048 Other nonmedicinal substance allergy status
CPT/HCPCS: 00812; 88305; J2704; J7120